=== PATIENT | male | born 2000 | race Caucasian/White ===

== ENCOUNTER 2023-09-13 12:21 | Emergency (ER) | payer BC ==
[2023-09-13] MEDS: Albuterol/Ipratropium 3.0-0.5 MG/3 ML Neb Soln NEB ONE (12:50)
[2023-09-13] MEDS: methylPREDNISolone Sodium Succinate 125 MG/2 ML SDV IVPUSH ONE (12:50)
[2023-09-13] MEDS: Albuterol/Ipratropium 3.0-0.5 MG/3 ML Neb Soln ONE (12:51)
[2023-09-13 13:00] LABS: BASOPHILS ABSOLUTE AUTO 0.03 K/uL (0.00-0.20); BASOPHILS PERCENT AUTO 0.3 % (0.0-1.0); EOSINOPHILS ABSOLUTE AUTO 0.33 K/uL (0.00-0.45); HEMATOCRIT 47.2 % (42.0-52.0); HEMOGLOBIN 16.9 g/dL (14.0-18.0); IMMATURE GRAN ABSOLUTE AUTO 0.02 K/uL (0.00-0.05); IMMATURE GRAN PERCENT AUTO 0.2 % (0.0-0.4); LYMPHOCYTES ABSOLUTE AUTO 1.21 K/uL (1.00-4.80); MEAN CORPUSCULAR HEMOGLOBIN 29.6 pg (28.0-32.0); MEAN CORPUSCULAR HGB CONC 35.8 g/dL (32.0-36.0); MEAN CORPUSCULAR VOLUME 82.8 fL (83.0-99.0); MONOCYTES ABSOLUTE AUTO 0.67 K/uL (0.00-0.80); MONOCYTES PERCENT AUTO 6.1 % (0.0-8.0); NEUTROPHILS ABSOLUTE AUTO 8.74 K/uL (1.80-7.70); NEUTROPHILS PERCENT AUTO 79.4 % (41.0-71.0); PLATELET COUNT,PLT 244 K/uL (150-400)
[2023-09-13 13:39] LABS: CORONAVIRUS COVID-19 NAA NEGATIVE (NEGATIVE); INFLUENZA A NAA NEGATIVE (NEGATIVE); INFLUENZA B NAA NEGATIVE (NEGATIVE); RESPIRATORY SYNCYTIAL VIR NAA NEGATIVE (NEGATIVE)
[2023-09-13] MEDS: Magnesium Sulfate/Water 2 GM in Premix Bag 1 BAG IV ONE (13:53)
[2023-09-13 15:01] LABS: A/G RATIO 1.2 (0.9-1.6); ALBUMIN 4.5 g/dL (3.4-5.0); BILIRUBIN TOTAL 0.7 mg/dL (0.2-1.0); CALCIUM 9.6 mg/dL (8.5-10.1); CARBON DIOXIDE,CO2 24.6 mmol/L (21.0-32.0); CREATININE 1.1 mg/dL (0.8-1.3); EST CRCL DRUG DOSING (CG) 109.68 mL/min; POTASSIUM,K 4.2 mmol/L (3.5-5.1); PROTEIN TOTAL,TP 8.1 g/dL (6.4-8.2)
[2023-09-13] MEDS: Ketorolac 30 MG/ML SDV IVPUSH ONE (15:03)
[2023-09-13] MEDS: Cefdinir 300 MG Cap PO ONE (16:22)
== END 2023-09-13 16:37 | disposition home or self-care (01) ==
LOC: MW.ED 12:21
DX: J45.901 Unspecified asthma with (acute) exacerbation (principal); J18.9 Pneumonia, unspecified organism; Z88.0 Allergy status to penicillin; Z79.899 Other long term (current) drug therapy; Z75.8 Other problems related to medical facilities and other health care
CPT/HCPCS: 0241U; 36415; 71046; 80053; 85025; 96365; 96375; 99285; A9270; J1885; J2930; J3475; J7620-GY